=== PATIENT | female | born 1990 | race Caucasian/White ===

== ENCOUNTER 2022-06-17 19:20 | Emergency (ER) | payer SELFPAY ==
[2022-06-17] MEDS ORDERED: Lorazepam 2 MG/ML VIAL ONE (19:47)
[2022-06-17] MEDS ORDERED: Ondansetron PF 4 MG/2 ML Vial ONE (19:47)
[2022-06-17 20:11] LABS: #Basophils 0.1 thou/uL (0.0-0.2); #Eosinphils 0.2 thou/uL (0.0-0.7); #Lymphocytes 2.2 thou/uL (1.20-3.40); #Monocytes 0.6 thou/uL (0.11-0.59); #Neutrophils 6.9 thou/uL (1.40-6.50); %Basophils 0.5 % (0.0-1.0); %Eosinophils 1.7 % (0.0-10.0); %Lymphocytes 22.4 % (21.0-51.0); %Monocytes 5.9 % (0.0-10.0); %Neutrophils 69.6 % (42.0-75.0); Hemoglobin 14.2 g/dL (12.0-16.0); Mean Corpuscular HGB CONC 33.5 g/dL (32.0-36.0); Mean Corpuscular Hemoglobin 30.9 pg (27.0-31.0); Mean Corpuscular Volume 92.2 fL (78.0-98.0); Mean Platelet Volume 6.6 fL (7.4-10.4); Platelet Count 290 thou/uL (130-400); RBC Distribution Width 11.1 % (11.5-14.5); Red Blood Cell (RBC) Count 4.58 mill/uL (4.20-5.40); White Blood Cell (WBC) Count 9.9 thou/uL (4.8-10.8)
[2022-06-17 20:32] LABS: ALT (SGPT) 20 U/L (8-55); AST (SGOT) 19 U/L (5-34); Albumin 4.8 g/dL (3.5-5.0); Alkaline Phosphatase 81 U/L (40-110); Anion Gap 16 mmol/L (10-20); BUN (Urea Nitrogen) 11 mg/dL (7.0-18.7); Bilirubin, Total 0.4 mg/dL (0.2-1.2); Calc. Creatinine Clearance 0 mL/min (70-130); Calcium 9.7 mg/dL (7.8-10.44); Carbon Dioxide 20 mmol/L (22-29); Chloride 109 mmol/L (98-107); Estimated GFR 82; Globulin 2.5 g/dL (2.4-3.5); Glucose 98 mg/dL (70-105); Lipase 23 U/L (8-78); Magnesium 1.9 mg/dL (1.6-2.6); Potassium 3.6 mmol/L (3.5-5.1); Protein, Total 7.3 g/dL (6.0-8.3); Sodium 141 mmol/L (136-145)
[2022-06-17] MEDS ORDERED: Lorazepam 1 MG TAB ONE (21:15)
== END 2022-06-17 21:28 | disposition home or self-care (01) ==
LOC: ERS 19:20
DX: F19.939 Other psychoactive substance use, unspecified with withdrawal, unspecified (principal); E78.5 Hyperlipidemia, unspecified; F17.290 Nicotine dependence, other tobacco product, uncomplicated
CPT/HCPCS: 80053; 83690; 83735; 85025; 93005; 96374; 96375; J2060; J2405

== ENCOUNTER 2022-10-18 18:44 | Emergency (ER) | payer SELFPAY ==
[2022-10-18] MEDS ORDERED: Azithromycin 250 MG TAB ONE (20:41)
[2022-10-18] MEDS ORDERED: Lidocaine 1% PF 5 ML VIAL ONE (20:41)
[2022-10-18] MEDS ORDERED: cefTRIAXone\\ROCEPHIN 500 MG VIAL ONE (20:41)
[2022-10-18] MEDS ORDERED: Ondansetron ODT 4 MG TAB ONE (20:41)
[2022-10-18 20:54] LABS: Bacteria/HPF 3+ HPF (None Seen); Bilirubin Negative (Negative); Blood, Urine 1+ (Negative); Clarity Turbid (Clear); Glucose, Urine (Dipstick) Normal (Negative); Ketone, Urine Negative (Negative); Leukocyte 500 Leu/uL (Negative); Nitrite Negative (Negative); Pregnancy Test - Urine (BHCG) Negative (Negative); Pregu Control Background? CLEAR/WHITE (CLR/WHITE); Pregu Control Bar Appear? YES (CONTROL BAR); Protein, Urine (Dipstick) 20 mg/dL (Neg-Trace); RBC/HPF Greater than 50 HPF (0-3); Renal Epithelial 0-3 HPF (None Seen); Urobilinogen Normal mg/dL (Less than 2); WBC/HPF Greater than 50 HPF (0-3); pH, Urine 5.5 (5.0-9.0)
[2022-10-19 16:55] LABS: Chlamydia by PCR Not Detected (NotDetected); GC by PCR Not Detected (NotDetected)
== END 2022-10-18 21:12 | disposition home or self-care (01) ==
LOC: ERS 18:44
DX: N89.8 Other specified noninflammatory disorders of vagina (principal); R30.0 Dysuria
CPT/HCPCS: 81003; 81015; 81025; 87086; 87480; 87491; 87510; 87591; 87660; 96372; 99283; J0696; Q0162